=== PATIENT | male | born 1950 | race Caucasian/White ===

== ENCOUNTER 2019-02-25 05:00 | Day surgery (SDC) | payer MEDICARE, OTHER ==
[2019-02-23 15:58] LABS: BASOPHILS 0.5 % (0-2); HEMATOCRIT 45.7 % (42.0-54.0); HEMOGLOBIN 15.7 g/dL (13.5-17.5); IMMATURE GRANULOCYTES 0.5 % (0-5); LYMPHOCYTES 21.5 % (15-50); MCH 30.4 pg (26.0-34.0); MCHC 34.4 g/dL (31.0-37.0); MCV 88.4 fL (80.0-100.0); MEAN PLATELET VOLUME 11.5 fL (7.4-10.4); MONOCYTES 13.8 % (2-11); NEUTROPHILS 61.7 % (40-80); PLATELET COUNT 193 10x3/uL (130-400); RBC 5.17 10x6/uL (4.20-6.10); RDW 13.7 % (11.5-14.5); WBC 8.6 10x3/uL (4.8-10.8)
[2019-02-23 16:10] LABS: APTT 33.1 SECONDS (22.8-39.4); INR 0.92 (0.85-1.17); PROTIME 11.9 SECONDS (11.6-15.0)
[~2019-02-25] VITALS: Ht 167.6 cm; Wt 83.9 kg
[~2019-02-25 05:00] MED LIST: FLUTICASONE PRO16 GM NASAL; LISINOPRIL20 MG PO; SINGULAIR10 MG PO; ZOCOR40 MG PO; ZYRTEC10 MG PO
[2019-02-25 05:53] VITALS: BP 103/53; Ht 167.6 cm; Wt 83.9 kg
--- NOTE | 2019-02-25 09:47 | NUR ---
0913-REC'D FROM RR. AWAKE AND ALERT WITHOUT PAIN. DRESSING CDI.VSS. AT BEDSIDE, CL IN EASY REACH
--- NOTE | 2019-02-25 09:48 | NUR ---
0924-FULL LIQUID TRAY TO ROOM
--- NOTE | 2019-02-25 10:34 | NUR ---
1015-DISCHARGE CRITERIA MET. REMOVED IV FROM LEFT HAND WITH CATH INTACT,COVERED SITE WITH BANDAID. REVIEWED DISCHARGE CRITERIA WITH PT AND SPOUSE. VERBALIZED UNDERSTANDING WITHOUT QUESTIONS OR CONCERNS. ESCORTED OUT VIA W/C BY VOLUNTEER WITH SPOUSE TO DRIVE HOME.
--- NOTE | 2019-03-04 10:07 | OP ---
PATIENT NAME: MIRLANDE SAUL MEDICAL RECORD: [id number] :50 LOCATION:D.OPS ADMISSION DATE: SURGEON: JOSE MANUEL ARNOLD DPM DATE OF OPERATION: 02/25/2019 PREOPERATIVE DIAGNOSES: 1. Right posterior calcaneal spurring with intratendinous calcifications. 2. Right Achilles tendon disruption. POSTOPERATIVE DIAGNOSES: 1. Right posterior calcaneal spurring with intratendinous calcifications. 2. Right Achilles tendon disruption. PROCEDURES: 1. Right gastroc recession. 2. Right posterior calcaneal spur resection as well as removal of intratendinous calcifications. 3. Right Achilles repair utilizing a suture bridge technique. ANESTHESIA: Preoperative popliteal block per the anesthesia department with intraoperative general anesthesia. HEMOSTASIS: Right thigh tourniquet at 350 mmHg. PREOPERATIVE DETAILS: The patient was taken to the OR and placed on the operating table in a supine position. This was followed by induction of general anesthesia. The patient was then placed on the operating table in a prone position. The right extremity was then prepped and draped in the usual aseptic technique followed by exsanguination and inflation of tourniquet. PROCEDURE #1: Gastroc recession, right leg. A 3 cm linear incision was made over the posterior aspect of the right gastroc aponeurosis. The incision was deepened down through subcutaneous tissue, avoiding the sural nerve and vein. The paratenon was then exposed. A linear incision was made and it was freed from the posterior aspect of the aponeurosis. With the foot held in dorsiflexion, a cut was made through the gastroc aponeurosis allowing adequate dorsiflexion of the ankle joint. The wound was flushed. The skin was then closed with skin sarah. PROCEDURE #2: Right posterior calcaneal spur resection with intratendinous calcification excision. Incision was made over the posterior aspect of the right calcaneus just medial to the midline. The incision was deepened down through subcutaneous tissue. The Achilles tendon was visualized and freed from surrounding soft tissue. A 15-blade was used to free up the Achilles tendon off the posterior aspect of the calcaneus. There was noted to be significant intratendinous calcifications, which were dissected out. There was noted to be significant posterior calcaneal spurring at the insertion of the Achilles tendon. A sagittal saw was used to resect the posterior calcaneal spur. The wound was flushed. PROCEDURE #3: Repair of right Achilles tendon utilizing the suture bridge technique with 4 anchors. The Achilles tendon was repaired in a rigid fashion to the posterior aspect of the calcaneus with excellent reduction in strength. The wound was flushed. The deep tissue was reapproximated with 2-0 Vicryl, the subcutaneous tissue with 4-0 Rapide and the skin was closed with 4-0 Rapide in a OPERATIVE REPORT [id number] MIRLANDE SAUL subcuticular technique followed by Dermabond. Adaptic, 4 x 4 and Conform were used to dress the wound followed by application of modified Cooley compression dressing. Tourniquet was deflated. POSTOPERATIVE DETAILS: The patient tolerated the procedure well and left the OR with vital signs stable and vascular status at preoperative levels. The patient was transported to recovery per anesthesia in stable condition. TRANSINT:[id number] Voice Confirmation ID: [id number] DOCUMENT ID: [id number] JOSE MANUEL ARNOLD DPM at 1007 CC: [id number] DICTATION DATE: 02/25/19 0837 ENVIRONMENTAL WEB CRAWLER: 02/25/19 1149 [facility] [place] 02/25/19 [facility] [address] [place] [address]
== END 2019-02-25 10:15 | disposition home or self-care (01) ==
LOC: D.OPS 05:00 → D.PAN 07:00 → D.OPS 07:00
PROVIDERS: Anesthesiology; ATTEND Podiatrist
DX: M77.31 Calcaneal spur, right foot (principal); S86.011A Strain of right Achilles tendon, initial encounter